=== PATIENT | male | born 1930 | race Caucasian/White ===

== ENCOUNTER → 2017-03-19 | Outpatient (CLI) | payer MEDICARE, OTHER ==
[~2017-03-19] MED LIST: ALBU90OI INH; ALLO100 PO; ALPR.25 PO; AMLO5 PO; ASPI325 PO; AZIT250 PO; Antivert25 MG PO; CHOL10002 PO; CLON.2TP TP; CLON.3TP TP; Catapres-Tts 11 EACH TD; DOXA4 PO; FOLI400 PO; GABA400 PO; HYDACE5325 PO; HYDCHL25 PO; HYDHOMSY PO; HYDRA25 PO; INSN100I SC; INSR10I SC; INSR10I SUBQ; ISOMON30 PO; LEVO750 PO; LEVSOD125 PO; LEVSOD75 PO; LIOT25 PO; MECL25 PO; METPRE4DP PO; MULVITB&C PO; NEBI10; NEBI10 PO; NIAC500 PO; NOVOLIN N U; Norvasc2.5 MG PO; OMEP20ER PO; PROCODE120 PO; TAMS.4ER PO; VALS80 PO; VITNEPH PO
[2017-03-19 14:26] LABS: Creatinine, Urine Random 61.9 mg/dL (27.00-270.00); Protein, Urine Random 21.1 mg/dL (0.0-11.9)
== END ==
LOC: OLS 12:34
PROVIDERS: Internal Medicine
DX: N18.3 Chronic kidney disease, stage 3 (moderate) (principal)
CPT/HCPCS: 82570; 84156

== ENCOUNTER 2017-09-11 15:32 | Emergency (ER) | payer MEDICARE, OTHER ==
[~2017-09-11] VITALS: Ht 182.9 cm; Wt 102.1 kg
[~2017-09-11 15:32] MED LIST changes: -ALLO100 PO
[2017-09-11] MEDS ORDERED: DOXA4 PO (16:42)
[2017-09-11] MEDS ORDERED: ALLO100 PO (16:42)
[2017-09-11 16:48] LABS: BASOPHILS ABSOLUTE AUTO 0.03 K/mm3 (0.00-0.23); BASOPHILS PERCENT AUTO 0 % (0-2); EOSINOPHILS PERCENT AUTO 1 % (0-6); Hematocrit 39.6 % (37.0-53.0); Hemoglobin 13.4 g/dL (13.5-17.5); IMMATURE GRAN ABSOLUTE AUTO 0.03 K/mm3 (0.00-0.10); IMMATURE GRAN PERCENT AUTO 0 % (0-1); LYMPHOCYTES ABSOLUTE AUTO 2.36 K/mm3 (0.84-5.20); LYMPHOCYTES PERCENT AUTO 30 % (21-46); MONOCYTES ABSOLUTE AUTO 0.63 K/mm3 (0.16-1.47); MONOCYTES PERCENT AUTO 8 % (4-13); Mean Corpuscular HGB 31.6 pg (26.0-34.0); Mean Corpuscular HGB Conc 33.8 g/dL (31.5-36.5); Mean Corpuscular Volume 93 fL (80-100); Mean Platelet Volume 10.9 fL (9.1-12.4); NEUTROPHILS PERCENT AUTO 60 % (41-73); Platelet Count 191 K/mm3 (150-400); RDW Coefficient Variation 13.6 % (11.7-14.2); RDW Standard Deviation 46.5 fL (35.1-46.3); Red Blood Cell Count 4.24 M/mm3 (4.30-5.90); White Blood Cell Count 7.85 K/mm3 (4.00-11.30)
[2017-09-11 17:05] LABS: Albumin, Blood 3.2 g/dL (3.4-5.0); Bilirubin, Total 0.3 mg/dL (0.1-1.0); Bun/Creatinine Ratio 18.1 (12.0-20.0); Calcium, Blood 9.3 mg/dL (8.5-10.1); Creatinine, Blood 1.55 mg/dL (0.60-1.20); Globulin, Blood 3.2 g/dL (2.2-4.0); Potassium, Blood 4.9 mmol/L (3.5-5.5); Total Protein, Blood 6.4 g/dL (6.4-8.2)
== END 2017-09-11 17:48 | disposition home or self-care (01) ==
LOC: ER 15:32
PROVIDERS: Internal Medicine
DX: I12.9 Hypertensive chronic kidney disease with stage 1 through stage 4 chronic kidney disease, or unspecified chronic kidney disease (principal); E11.22 Type 2 diabetes mellitus with diabetic chronic kidney disease; N18.3 Chronic kidney disease, stage 3 (moderate); Z88.8 Allergy status to other drugs, medicaments and biological substances; Z79.899 Other long term (current) drug therapy; Z79.4 Long term (current) use of insulin; Z79.2 Long term (current) use of antibiotics; E11.9 Type 2 diabetes mellitus without complications; I10 Essential (primary) hypertension; K21.9 Gastro-esophageal reflux disease without esophagitis; Z87.891 Personal history of nicotine dependence
CPT/HCPCS: 36415; 71046; 80053; 83880; 85025; 93005; 93010; 99283-25

== ENCOUNTER 2018-06-05 04:04 | Emergency (ER) | payer MEDICARE, OTHER ==
[~2018-06-05] VITALS: Ht 182.9 cm; Wt 107.9 kg
[~2018-06-05 04:04] MED LIST changes: +ALLO100 PO
[2018-06-05 04:23] LABS: BASOPHILS ABSOLUTE AUTO 0.05 K/mm3 (0.00-0.23); BASOPHILS PERCENT AUTO 1 % (0-2); EOSINOPHILS ABSOLUTE AUTO 0.09 K/mm3 (0.00-0.68); EOSINOPHILS PERCENT AUTO 1 % (0-6); Hematocrit 38.7 % (37.0-53.0); Hemoglobin 12.4 g/dL (13.5-17.5); IMMATURE GRAN ABSOLUTE AUTO 0.02 K/mm3 (0.00-0.10); IMMATURE GRAN PERCENT AUTO 0 % (0-1); LYMPHOCYTES ABSOLUTE AUTO 4.47 K/mm3 (0.84-5.20); LYMPHOCYTES PERCENT AUTO 41 % (21-46); MONOCYTES ABSOLUTE AUTO 0.76 K/mm3 (0.16-1.47); MONOCYTES PERCENT AUTO 7 % (4-13); Mean Corpuscular HGB 30.5 pg (26.0-34.0); Mean Corpuscular Volume 95 fL (80-100); Mean Platelet Volume 11.5 fL (9.1-12.4); NEUTROPHILS ABSOLUTE AUTO 5.58 K/mm3 (1.96-9.15); NEUTROPHILS PERCENT AUTO 51 % (41-73); Platelet Count 168 K/mm3 (150-400); RDW Coefficient Variation 14.6 % (11.7-14.2); RDW Standard Deviation 50.6 fL (35.1-46.3); Red Blood Cell Count 4.07 M/mm3 (4.30-5.90); White Blood Cell Count 10.97 K/mm3 (4.00-11.30)
[2018-06-05] MEDS ORDERED: TORS10 (04:47)
[2018-06-05 04:49] LABS: Albumin, Blood 2.9 g/dL (3.4-5.0); Albumin/Globulin Ratio 0.8 (0.8-1.8); Bilirubin, Total 0.6 mg/dL (0.1-1.0); Bun/Creatinine Ratio 22.3 (12.0-20.0); Calcium, Blood 8.8 mg/dL (8.5-10.1); Creatinine, Blood 1.97 mg/dL (0.60-1.20); Globulin, Blood 3.5 g/dL (2.2-4.0); Potassium, Blood 4.2 mmol/L (3.5-5.5); Total Protein, Blood 6.4 g/dL (6.4-8.2)
[2018-06-05 05:08] LABS: Troponin I 1.83 ng/mL (0.000-0.040)
== END 2018-06-05 06:50 | disposition short-term general hospital (02) ==
LOC: ER 04:04
PROVIDERS: Emergency Medicine
DX: I21.4 Non-ST elevation (NSTEMI) myocardial infarction (principal); E11.9 Type 2 diabetes mellitus without complications; I10 Essential (primary) hypertension; N28.9 Disorder of kidney and ureter, unspecified; Z87.891 Personal history of nicotine dependence; Z88.8 Allergy status to other drugs, medicaments and biological substances; Z79.899 Other long term (current) drug therapy; Z79.4 Long term (current) use of insulin
CPT/HCPCS: 36415; 71046; 80053; 82947; 83880; 84484; 85025; 85730; 93005; 93010; 96365; 99285-25; J1644

== ENCOUNTER 2019-01-12 13:30 | Day surgery (SDC) | payer MEDICARE, OTHER ==
[~2019-01-12 13:30] MED LIST changes: +TORS10
--- NOTE | 2019-01-12 16:18 | NUR ---
REPORT TO DELVIS. PT CONTINUES TO REMAIN STABLE WITH CLEAR INCISION SITE.
--- NOTE | 2019-01-12 16:45 | NUR ---
sandip continues to deny any new pain or difficulty. discharge [id number] given earlier by king rodriguez. sandip denies concerns r/t discharge. ambulated out per patient request, steady on feet
== END 2019-01-12 22:38 | disposition home or self-care (01) ==
LOC: RAD 13:30
DX: M96.1 Postlaminectomy syndrome, not elsewhere classified (principal); E11.9 Type 2 diabetes mellitus without complications; E78.00 Pure hypercholesterolemia, unspecified; I10 Essential (primary) hypertension; E07.9 Disorder of thyroid, unspecified; G47.30 Sleep apnea, unspecified; G89.4 Chronic pain syndrome; Z87.891 Personal history of nicotine dependence; Z95.5 Presence of coronary angioplasty implant and graft; Z79.82 Long term (current) use of aspirin; Z79.02 Long term (current) use of antithrombotics/antiplatelets; Z79.4 Long term (current) use of insulin; Z79.899 Other long term (current) drug therapy; Z88.6 Allergy status to analgesic agent; Z88.8 Allergy status to other drugs, medicaments and biological substances; Y83.8 Other surgical procedures as the cause of abnormal reaction of the patient, or of later complication, without mention of misadventure at the time of the procedure
CPT/HCPCS: 62304; 72132; Q9966

== ENCOUNTER 2019-10-27 06:08 | Day surgery (SDC) | payer MEDICARE, OTHER ==
[~2019-10-27] VITALS: Ht 180.3 cm; Wt 100.0 kg
[~2019-10-27 06:08] MED LIST changes: +ASPI81CH PO; +CLOP75 PO; +LOSA25 PO
[2019-10-27] MEDS ORDERED: NEBI5 PO (07:26)
--- NOTE | 2019-10-27 11:47 | NUR ---
PT AMB TO BTR WELL, DRESSING NOW, L GROIN SITE STABLE, PEDALS BILAT WARM, PT STATES R TOE DOES NOT HURT LIKE IT DID PRIOR TO PROCEDURE, IV DC'D INTACT, FRIEND CALLED TO GIVE RIDE HOME, PT WILL BE DC'D SHORTLY BY THIS RN BY GAGAN.
== END 2019-10-27 12:00 | disposition home or self-care (01) ==
LOC: MHTC 06:08
DX: I70.213 Atherosclerosis of native arteries of extremities with intermittent claudication, bilateral legs (principal); E78.5 Hyperlipidemia, unspecified; G47.33 Obstructive sleep apnea (adult) (pediatric); I12.9 Hypertensive chronic kidney disease with stage 1 through stage 4 chronic kidney disease, or unspecified chronic kidney disease; E11.22 Type 2 diabetes mellitus with diabetic chronic kidney disease; I25.10 Atherosclerotic heart disease of native coronary artery without angina pectoris; N18.4 Chronic kidney disease, stage 4 (severe); E03.9 Hypothyroidism, unspecified; E66.01 Morbid (severe) obesity due to excess calories; Z87.891 Personal history of nicotine dependence; Z95.5 Presence of coronary angioplasty implant and graft; Z79.899 Other long term (current) drug therapy; Z79.82 Long term (current) use of aspirin; Z79.02 Long term (current) use of antithrombotics/antiplatelets; Z79.4 Long term (current) use of insulin; Z68.31 Body mass index [BMI] 31.0-31.9, adult; Z86.73 Personal history of transient ischemic attack (TIA), and cerebral infarction without residual deficits
CPT/HCPCS: 37224; 37228; 37232; 75716; 75774; 99152; 99153; C1725; C1760; C1769; C1887; C1894; C2623; J0360; J1644; J2250; J3010; J7030; J7040; Q9967

== ENCOUNTER 2020-04-04 20:54 | Emergency (ER) | payer MEDICARE, OTHER ==
[~2020-04-04] VITALS: Ht 182.9 cm; Wt 99.8 kg
[~2020-04-04 20:54] MED LIST changes: +NEBI5 PO
== END 2020-04-04 21:30 | disposition home or self-care (01) ==
LOC: ER 20:54
DX: Z48.01 Encounter for change or removal of surgical wound dressing (principal); I10 Essential (primary) hypertension; E11.9 Type 2 diabetes mellitus without complications; Z88.8 Allergy status to other drugs, medicaments and biological substances; Z88.9 Allergy status to unspecified drugs, medicaments and biological substances; Z88.1 Allergy status to other antibiotic agents; Z87.891 Personal history of nicotine dependence; Z79.4 Long term (current) use of insulin; Z79.02 Long term (current) use of antithrombotics/antiplatelets
CPT/HCPCS: 99283; A9270

== ENCOUNTER 2021-02-01 08:01 | Day surgery (SDC) | payer MEDICARE, OTHER ==
[~2021-02-01] VITALS: Ht 182.9 cm; Wt 103.0 kg
[~2021-02-01 08:01] MED LIST changes: +C COMPLEX1000 M1 PO; +CLOBETASOL EMOL15 G1 TOP; +HUMULIN N100 UNIT/6 SC; +LORA10ER PO; +NITR.4SL SL; +REPATHA SU140 MG/1 M SC; +[UNRECOGNIZED DRUG - OTHER] PO
--- NOTE | 2021-02-01 11:45 | NUR ---
[facility] via gurney. A&O. left groin site soft and nontender dressing D&I. no hematoma no bleeding.
--- NOTE | 2021-02-01 12:10 | NUR ---
patient groin site stable.
--- NOTE | 2021-02-01 12:15 | NUR ---
patient resting in bed . left groin site stable dressing D&I.
--- NOTE | 2021-02-01 12:45 | NUR ---
patient hob 30 degree. eating lunch. left groin site satble
--- NOTE | 2021-02-01 14:46 | NUR ---
PT DRESSED, AMB TO BTR WELL, L GROINS SITE STABLE, PT CALLED SON TO COME PICK HIM UP, IV DC'D INTACT, WILL DC BY WC WHEN SON ARRIVES
--- NOTE | 2021-02-01 15:02 | NUR ---
PT DC'D BY GAGAN, SON DRIVING PT HOME
== END 2021-02-01 15:46 | disposition home or self-care (01) ==
LOC: MHTC 08:01
DX: E11.51 Type 2 diabetes mellitus with diabetic peripheral angiopathy without gangrene (principal); I70.213 Atherosclerosis of native arteries of extremities with intermittent claudication, bilateral legs; I25.10 Atherosclerotic heart disease of native coronary artery without angina pectoris; I87.2 Venous insufficiency (chronic) (peripheral); E11.22 Type 2 diabetes mellitus with diabetic chronic kidney disease; I12.9 Hypertensive chronic kidney disease with stage 1 through stage 4 chronic kidney disease, or unspecified chronic kidney disease; N18.9 Chronic kidney disease, unspecified; E78.5 Hyperlipidemia, unspecified; Z86.73 Personal history of transient ischemic attack (TIA), and cerebral infarction without residual deficits; G47.33 Obstructive sleep apnea (adult) (pediatric); K21.9 Gastro-esophageal reflux disease without esophagitis; E03.9 Hypothyroidism, unspecified; Z95.1 Presence of aortocoronary bypass graft; Z95.5 Presence of coronary angioplasty implant and graft; Z87.891 Personal history of nicotine dependence; Z79.02 Long term (current) use of antithrombotics/antiplatelets; Z79.4 Long term (current) use of insulin
CPT/HCPCS: 76937; 99152; 99153; C1725; C1760; C1769; C1887; C1894; J0360; J1644; J2250; J3010; J7030; J7050; Q9967